=== PATIENT | male | born 1985 | race Caucasian/White ===

== ENCOUNTER → 2019-02-15 | Outpatient (CLI) | payer OTHER ==
[~2019-02-15] MED LIST: IOHEXOL 180 MG/ML 10 ML VIAL. ONE; methylPREDNISolone ACETATE 40 MG/ML VIAL. ONE; methylPREDNISolone ACETATE 80 MG/ML VIAL. ONE
--- NOTE | 2019-02-16 04:43 | PAIN ---
DATE OF SERVICE: 02/15/2019 INITIAL CONSULTATION FOR PAIN CLINIC CHIEF COMPLAINT: Low back and bilateral lower extremity pain. HISTORY OF PRESENT ILLNESS: This is a 33-year-old male who presents with history of pain in low back and the bilateral lower extremities, mostly in the posterior gluteus, posterior thighs, right equal to left. The patient reports it has been going on for about 7 years, not a result of any specific injury or accidents that he is aware of, but he was previously in active , carrying heavy weights and marching, lot of jumping and wear and tear in his back by his report. The patient reports pain now is localized in the low back radiating to posterior gluteus, posterior thighs, but mostly in the low back pain. The patient reports it is constant, sharp, throbbing, changes during the day with activity, worse with walking, standing, changing positions, getting up from a seated position, is aching and dull. The patient reports it awakens him from sleep, sometimes more per night than others, sometimes once or twice, sometimes up to a dozen times. The patient reports it has not affected his bowel or bladder control or his ability to walk, but is much worse with walking and standing, sitting is usually better as he is lying down, but again it wakes him from sleep, fairly frequently. The patient did have MRI scan on the lumbar spine, which is dated 01/06/2019 showing mild degenerative disk disease at L5-S1 with mild minimal bilateral neural foraminal narrowing L5-S1 secondary to degenerative disk disease and degenerative change of the facet joints bilaterally. The patient rates disability from 0-10, 10 being the worst, is 10 with family and home responsibilities, recreation, 7 with social activity, occupation, 8 with sexual behavior, 5 with self care and 5 with life support activities. The patient has tried physical therapy as well as chiropractic treatment, most currently and is ongoing and exercises ongoing as well, though all of which do decrease the pain, but only very mildly. The patient tried muscle relaxers as well about 2 weeks ago, which did not help significantly to decrease the pain. The patient reports no loss of motor function, but significant fatigability of the bilateral lower extremities with any walking or standing more than about 15-20 minutes. PAST MEDICAL HISTORY: Significant for hypertension, cigarette smoking. PREVIOUS SURGERY: Include appendectomy in 2012 and benign tumor removed off the left knee in 2006 on the lateral aspect. CURRENT MEDICATIONS: Include oseltamivir 75 mg capsules twice daily for flu and he has finished this already. ALLERGIES: THE PATIENT IS ALLERGIC TO PSEUDOEPHEDRINE, also taking [id number] Advil and Motrin, without significant improvement. FAMILY HISTORY: Significant for no major medical problems or conditions that he lists. SOCIAL HISTORY: The patient has about 2 alcoholic drinks every week or so. Smokes cigarettes, less than a pack a day and has for many years. The patient is single. Lives locally in [place], [place]. REVIEW OF SYSTEMS: The patient's review of systems is positive for those items mentioned in history of present illness. All systems reviewed and otherwise negative. It is complete, full and well documented on the patient's chart. PHYSICAL EXAMINATION: VITAL SIGNS: The patient's blood pressure is 154/78, pulse 78, respirations 18, temperature is 98.2 degrees Fahrenheit, height is 5 feet 8 inches, weight is 268 pounds. GENERAL: The patient is awake, alert, oriented, appropriate, very pleasant demeanor. HEENT: Head shows normocephalic, atraumatic. Extraocular movements are intact, symmetrical. Oral cavity: Mucous membranes moist and pink. Dentition is intact. NECK: Shows anterior throat supple without palpable lymphadenopathy noted. Swallow reflex is symmetrical. CHEST: Shows normal on inspection. Breath sounds clear to auscultation bilaterally. HEART: Shows S1, S2 clear. No murmurs auscultated. ABDOMEN: Soft, obese, nontender, nondistended. No palpable organomegaly is noted. No rebound or guarding demonstrated. BACK: The patient's back shows spine grossly in the midline. Normal appearing thoracic kyphosis and lumbar lordotic curvature. The patient's neck shows full rotational motion of cervical spine, both laterally as well as extension and flexion without difficulty. The patient's lumbar spine shows symmetrical on inspection, normal lordotic curvature, with palpation it is moderate tenderness diffusely bilaterally in the low lumbar distribution but without atrophy, hypertrophy, no trigger points, no asymmetry. No tenderness over the spinous processes or the sacrum. The patient has good rotational motion both laterally greater than 10 degrees right and left as well as extension greater than 10 degrees, forward flexion 45 degrees without significant pain reported. No tenderness over the spinous processes or the sacroiliac regions. EXTREMITIES: The patient's lower extremities show deep tendon reflexes at 2+ in the patellar, 1+ tendo-calcaneus tendons. Motor exam is strong with 5/5 dorsiflexion, extension, quadriceps and hamstring flexion and symmetrical. Peripheral pulses are 1+ posterior tibia. No peripheral edema is noted bilaterally. Lower extremities shows on the left a well-healed surgical scar on the lateral aspect just inferior to the knee. Otherwise, lower extremities are warm and dry to touch, equal in color and appearance. The patient's straight leg raise noted to be negative for reproduction of radicular symptoms bilaterally as is Gaenslen's and James's maneuvers negative bilaterally. The patient is able to stand, stand on his toes without difficulty or loss of balance, walks with a normal appearing gait without any assistive devices. Does not appear to favor the right or left lower extremity with ambulation. SKIN: Shows warm and dry, good turgor. No edema. No sores, rashes or bruising throughout. IMPRESSION: 1. This is a 33-year-old male with long history about 7 years of low back pain, bilateral lower extremity pain. 2. Lumbar MRI as noted. 3. Hypertension. PLAN: Options were discussed with the patient including conservative medical management, continued physical therapy, interventional techniques. He would like to pursue interventional techniques. We discussed a lumbar epidural steroid injection using description as well as anatomical models to describe the procedure. Risks were then discussed including, but not limited to bleeding, infection, possibility of epidural hematoma and subsequent neurological compromise, dural puncture, headaches, spinal cord and/or nerve damage, side effects of steroid medication and poor results regarding pain control. The patient understands and wished to proceed. The patient will return to clinic in approximately 2 weeks for followup, was counseled as to return appointment, activity level and side effects to be aware of. DIAGNOSES: Lumbar radiculopathy with lumbar degenerative disk disease. PROCEDURE: Lumbar epidural steroid injection, translaminar approach at L5-S1 level using C-arm fluoroscopic guidance under sterile prep and drape using local anesthetic. MEDICATION INJECTED: A total of 120 mg Depo-Medrol plus 10 mL of preservative-free normal saline and 2 mL of Isovue for contrast. CONDITION AT DISCHARGE: Stable. The patient tolerated procedure well, had no complications. INO SANTILLAN MD DR: Herman JOB#: [id number] / [id number]
== END | disposition home or self-care (01) ==
LOC: PNCL 13:08
PROVIDERS: ATTEND Anesthesiology
DX: M51.16 Intervertebral disc disorders with radiculopathy, lumbar region (principal); I10 Essential (primary) hypertension; F17.210 Nicotine dependence, cigarettes, uncomplicated; Z90.49 Acquired absence of other specified parts of digestive tract; Z98.890 Other specified postprocedural states; Z79.899 Other long term (current) drug therapy; Z88.6 Allergy status to analgesic agent; Z72.89 Other problems related to lifestyle
CPT/HCPCS: 62323; J1030; J1040; Q9965